=== PATIENT | female | born 1990 | race Caucasian/White ===

== ENCOUNTER 2017-01-22 14:17 | Emergency (ER) | payer OTHER ==
[~2017-01-22] VITALS: Ht 160 cm; Wt 88.2 kg
[~2017-01-22 14:17] MED LIST: ANAPROX DS550 M1 PO; ASPIRIN325 MG PO; ATARAX,VISTARIL25 MG PO; ATIVAN0.5 MG PO; CHANTIX0.5 MG PO; COLACE; COUMADIN,JANTOVE5 MG PO; COUMADIN10 MG PO; COUMADIN6 MG PO; COUMADIN7.5 MG PO; Colace PO; Coumadin Protocol PO; Coumadin,Jantoven PO; Dilaudid PO; Feosol PO; Habitrol,Nicoderm CQ TD; Heparin IV; LOVENOX30 MG/0.3 SC; LOVENOX80 MG/0.8 SC; Lovenox SC; NICODERM CQ1 EAC1 TD; PERCOCET 5/31 TABLET PO; PREDNISONE20 MG PO; PROAIR HFA8.5 GM IH; Percocet 5/325,Endoc PO; Protonix PO; Proventil,Ventolin H IH; Remove Nicotine Patc TD; Senokot,Sennagen PO; VICODIN,LORT1 TABLET PO; Vicodin,Lortab 5/500 PO; WARFARIN SODIUM10 MG PO; WARFARIN SODIUM5 MG PO; XANAX0.5 MG PO; Xanax PO
[2017-01-22] MEDS ORDERED: METHADONE 22 MG/1 ML PO (15:20)
[2017-01-22 15:43] LABS: HEMATOCRIT 39.3 % (36.0-46.0); MCH 26.8 PG (29.0-34.0); MCHC 31.6 G/DL (30.0-36.0); MCV 85.1 FL (83-99); MEAN PLAT.VOLUME 9.6 uM^3 (9.5-12.4); PLATELET COUNT 380 K/uL (156-360); RBC DIS.WIDTH-CV 15.6 % (11.8-14.6); RBC DIS.WIDTH-SD 48.5 % (39-53); RED BLOOD COUNT 4.62 M/uL (3.80-5.20)
[2017-01-22 15:54] LABS: CHLORIDE 104 mEq/L (99-109); INTER. NORMALIZED RATIO 3.3; POTASSIUM 4.4 mEq/L (3.7-5.4); SODIUM 138 mEq/L (136-147)
[2017-01-22 15:55] LABS: GLUCOSE 95 mg/dL (70-99)
[2017-01-22 15:57] LABS: ANION GAP 8 MEQ/L (2-14); PTT 70.4 SEC (25-37)
[2017-01-22 15:59] LABS: GFR ESTIMATE (CALCULATED) > 59 mL/min/
[2017-01-22 16:00] LABS: UREA NITROGEN (BUN) 6 mg/dL (9-23)
[2017-01-22 17:04] VITALS: BP 118/60
== END 2017-01-22 17:08 | disposition home or self-care (01) ==
LOC: EME 14:17
PROVIDERS: Physician Assistant
DX: M54.2 Cervicalgia (principal); Z86.718 Personal history of other venous thrombosis and embolism; Z86.711 Personal history of pulmonary embolism; Z79.01 Long term (current) use of anticoagulants; D68.61 Antiphospholipid syndrome; Z87.891 Personal history of nicotine dependence
CPT/HCPCS: 70498; 71275; 80048; 85027; 85610; 85730; 99281; 99284; J7030